=== PATIENT | female | born 1985 | race Caucasian/White ===

== ENCOUNTER 2017-03-20 12:08 | Day surgery (SDC) | payer OTHER ==
[~2017-03-20] VITALS: Ht 167.6 cm; Wt 73.0 kg
[~2017-03-20 12:08] MED LIST: DOXY200C PO; NS 1,000 ML IV ONE; OXYC15TA76 PO
[2017-03-20] MEDS ORDERED: IMIT50TA PO (13:36)
[2017-03-20] MEDS ORDERED: IMIT5SPR (13:36)
[2017-03-20] MEDS ORDERED: IMIT6INJ SC (13:36)
[2017-03-20] MEDS ORDERED: ZOFR4TAB3 PO (13:36)
[2017-03-20] MEDS ORDERED: PROPOFOL 200 MG/20 ML VIAL As Ordered ONE (14:12)
--- NOTE | 2017-03-20 14:17 | ROOR ---
Patient Name: Tiffany Osei Procedure Date: 03/20/2017 1:51 PM Date of : 1985 Age: 32 Room: LTAC, [facility]IN [facility] Gender: Female Note Status: Finalized Procedure: Total Colonoscopy to Cecum + ileoscopy + Bx Indications: Generalized abdominal pain, Change in bowel habits Providers: Romaine Yung MD Referring MD: MAXIME Ortiz Requesting Provider: Medicines: Monitored Anesthesia Care Complications: No immediate complications. Procedure: Pre-Anesthesia Assessment: - The heart rate, respiratory rate, oxygen saturations, blood pressure, adequacy of pulmonary ventilation, and response to care were monitored throughout the procedure. The Colonoscope was introduced through the anus and advanced to the terminal ileum, with identification of the appendiceal orifice and IC valve. The colonoscopy was performed without difficulty. The patient tolerated the procedure well. The quality of the bowel preparation was good. Findings: The perianal and digital rectal examinations were normal. Non-bleeding internal hemorrhoids were found during retroflexion. The hemorrhoids were small and Grade I (internal hemorrhoids that do not prolapse). The terminal ileum appeared normal. The exam was otherwise normal throughout the examined colon. Biopsies for histology were taken with a cold forceps from the ascending colon, transverse colon and descending colon for evaluation of microscopic colitis. The exam was otherwise without abnormality. Impression: - Non-bleeding internal hemorrhoids. - The examined portion of the ileum was normal. - The examination was otherwise normal. - Biopsies were taken with a cold forceps from the ascending colon, transverse colon and descending colon for evaluation of microscopic colitis. - The exam was otherwise normal to the cecum. Recommendation: - Patient has a contact number available for emergencies. The signs and symptoms of potential delayed complications were discussed with the patient. Return to normal activities tomorrow. Written discharge instructions were provided to the patient. - High fiber diet. - Discharge patient to home. - Continue present medications. - Await pathology results. - Telephone GI clinic for pathology results in 1 week. - Repeat colonoscopy at age 49 for screening purposes. - Return to referring physician. - Check Portal Online for Path Results.([email or web address] - The findings and recommendations were discussed with the patient's family. Romaine Yung MD Romaine Yung MD 03/20/2017 2:16:31 PM This report has been signed electronically. Number of Addenda: 0 Note Initiated On: 03/20/2017 1:51 PM Estimated Blood Loss: Estimated blood loss: none.
[2017-03-20] MEDS ORDERED: ONDANSETRON 4MG/2ML VIAL (J2405) As Ordered ONE (14:19)
[2017-03-20] MEDS ORDERED: ONDANSETRON 4MG/2ML VIAL (J2405) IV ONE (14:45)
[2017-03-20 14:53] VITALS: BP 115/74
== END 2017-03-20 14:50 | disposition home or self-care (01) ==
LOC: M OPP 12:08
PROVIDERS: ATTEND Internal Medicine Gastroenterology
DX: R10.84 Generalized abdominal pain (principal); R19.4 Change in bowel habit; K64.0 First degree hemorrhoids; D64.9 Anemia, unspecified; Z86.711 Personal history of pulmonary embolism; G43.909 Migraine, unspecified, not intractable, without status migrainosus; G47.8 Other sleep disorders; Z90.13 Acquired absence of bilateral breasts and nipples; Z88.5 Allergy status to narcotic agent; Z88.8 Allergy status to other drugs, medicaments and biological substances; Z79.899 Other long term (current) drug therapy; Z80.3 Family history of malignant neoplasm of breast; Z80.0 Family history of malignant neoplasm of digestive organs; Z80.1 Family history of malignant neoplasm of trachea, bronchus and lung
CPT/HCPCS: 45380; 88305; J2405

== ENCOUNTER 2017-05-30 11:50 | Emergency (ER) | payer OTHER ==
[2017-05-30] MEDS: PERCOCET 5MG/325MG TAB PO (14:26)
== END 2017-05-30 15:55 | disposition home or self-care (01) ==
LOC: M ED 11:50
DX: S80.02XA Contusion of left knee, initial encounter (principal); X50.9XXA Other and unspecified overexertion or strenuous movements or postures, initial encounter; Y92.009 Unspecified place in unspecified non-institutional (private) residence as the place of occurrence of the external cause; Z79.899 Other long term (current) drug therapy; Z88.0 Allergy status to penicillin; Z88.8 Allergy status to other drugs, medicaments and biological substances
CPT/HCPCS: 73564

== ENCOUNTER → 2018-12-10 | Outpatient (REF) | payer OTHER ==
[~2018-12-10] MED LIST changes: +IBUP-1022 PO; +IMIT50TA PO; +IMIT5SPR; +IMIT6INJ SC; -NS 1,000 ML IV ONE; +TRAM50TA2 PO; +ZOFR4TAB14 PO
[2018-12-14 14:28] LABS: HPV HYBRID CAPTURE II Negative (Negative)
== END ==
LOC: M LAB LCGH 11:48
PROVIDERS: ATTEND Nurse Practitioner Adult Health
DX: Z12.72 Encounter for screening for malignant neoplasm of vagina (principal); Z90.710 Acquired absence of both cervix and uterus

== ENCOUNTER → 2019-12-09 | Outpatient (CLI) | payer OTHER, SELFPAY ==
[~2019-12-09] MED LIST changes: +OXYC-1 PO; -OXYC15TA76 PO
== END ==
LOC: M LABSMTC 11:16
PROVIDERS: ATTEND Pediatrics
DX: Z03.818 Encounter for observation for suspected exposure to other biological agents ruled out (principal)

== ENCOUNTER → 2020-02-29 | Outpatient (CLI) | payer OTHER ==
[2020-02-29 12:26] LABS: BASO % 0.4 % (0.0-1.0); EOS # 0.1 10^3/uL (0.0-0.5); EOS % 1.7 % (0.0-3.0); HEMATOCRIT 41.4 % (36.0-47.0); HEMOGLOBIN 13.2 g/dl (12.0-15.5); LYMPH # 2.8 10^3/uL (1.5-5.0); LYMPH % 39.2 % (24.0-44.0); MEAN CORPUSCULAR HEMOGLOBIN 29.6 pg (27.0-33.0); MEAN CORPUSCULAR HGB CONC 31.9 g/dl (32.0-36.5); MEAN CORPUSCULAR VOLUME 92.8 fl (80.0-96.0); MONO # 0.4 10^3/uL (0.0-0.8); MONO % 5.7 % (0.0-5.0); NEUTROPHILS # 3.8 10^3/uL (1.5-8.5); NEUTROPHILS % 52.9 % (36.0-66.0); PLATELET COUNT, AUTOMATED 237 10^3/uL (150-450); RED BLOOD COUNT 4.46 10^6/uL (4.00-5.40); WHITE BLOOD COUNT 7.3 10^3/uL (4.0-10.0)
[2020-02-29 12:51] LABS: ALBUMIN 4.1 GM/DL (3.2-5.2); ALT/SGPT 40 U/L (12-78); BILIRUBIN,DIRECT < 0.1 MG/DL (0.0-0.2); BILIRUBIN,TOTAL 0.3 MG/DL (0.2-1.0); BLOOD UREA NITROGEN 9 MG/DL (7-18); CALCIUM LEVEL 8.7 MG/DL (8.5-10.1); CARBON DIOXIDE LEVEL 29 MEQ/L (21-32); CHLORIDE LEVEL 104 MEQ/L (98-107); CREATININE FOR GFR 0.69 MG/DL (0.55-1.30); GLOMERULAR FILTRATION RATE > 60.0 (>60); GLUCOSE, FASTING 72 MG/DL (70-100); POTASSIUM SERUM 3.8 MEQ/L (3.5-5.1); SODIUM LEVEL 139 MEQ/L (136-145); TOTAL PROTEIN 7.6 GM/DL (6.4-8.2)
== END ==
LOC: M LAB 11:50
PROVIDERS: ATTEND Physician Assistant
DX: K92.1 Melena (principal)

== ENCOUNTER → 2020-03-31 | Outpatient (CLI) | payer OTHER ==
--- NOTE | 2020-03-31 14:45 | REP ---
INDICATION: SPONDYLOSIS W/O MYELOPATHY OR RADICULOPATHY ? METS. Patient reports migraines for the last 2 months with right posterior skull pain. COMPARISON: Comparison is made with prior CT study of the brain from December 05, 2013.. TECHNIQUE/RADIOTRACER AND DOSE: 21.7 mCi of Technetium-99m MDP was injected and standard whole-body bone scanning is acquired. FINDINGS: There is a normal distribution of skeletal tracer with uptake in bilateral kidneys and in the urinary bladder. There is a solitary focus of slightly increased uptake in the right occipital bone posteriorly. No other abnormal skeletal uptake is appreciated. There is no scintigraphic evidence to suggest skeletal metastatic disease.. IMPRESSION: Solitary focus of slightly increased uptake in the right posterior occipital bone uncertain significance. No corresponding abnormality is seen on the [address] study. A repeat brain CT study could be considered to look for corresponding calvarial lesion. Otherwise negative whole body radionuclide bone scan.. <Electronically signed by Papi Chin > 03/31/20 [id number]
== END ==
LOC: M RAD 10:06
PROVIDERS: ATTEND Physician Assistant
DX: M47.812 Spondylosis without myelopathy or radiculopathy, cervical region (principal)
CPT/HCPCS: 78306; A9503

== ENCOUNTER → 2020-04-23 | Outpatient (CLI) | payer OTHER ==
[~2020-04-23] MED LIST changes: +DULO1CAP5 PO; +NORT25CA2 PO; +ROSU10TA6 PO; +VITA500C24 PO; +WOMETAB PO; +XARE20TA PO
--- NOTE | 2020-04-23 10:43 | REP ---
INDICATION: DVT COMPARISON: None. TECHNIQUE: AP, Water's view, Jana's view, and bilateral lateral views of the skull. FINDINGS: Calvarium appears intact and relatively age-appropriate. No obvious lytic or blastic lesions are identified. Specifically, right posterior occipital area demonstrates no abnormality at the site of suspicious bone scan findings. IMPRESSION: Essentially normal examination. <Electronically signed by Ace Bowie > 04/23/20 1032
== END ==
LOC: M RAD 10:05
PROVIDERS: ATTEND Internal Medicine Hematology & Oncology
DX: I82.409 Acute embolism and thrombosis of unspecified deep veins of unspecified lower extremity (principal); I26.99 Other pulmonary embolism without acute cor pulmonale

== ENCOUNTER → 2020-05-19 | Outpatient (CLI) | payer OTHER ==
[~2020-05-19] MED LIST changes: +CYCL7.5T32 PO
--- NOTE | 2020-05-25 12:32 | ECHO ---
DATE OF PROCEDURE: 05/19/2020 Age: 35 Gender: Female Height: 158 cm Weight: 83 kg REFERRING PHYSICIAN: Maurizio Miller PA-C INDICATION: Aneurysm of carotid artery. MEASUREMENTS: 2D Measurements: Intraventricular septum 0.99 cm Posterior wall 0.92 cm Left ventricle diastole 4.5 cm Aortic root 2.6 cm Left atrium 2.6 cm Left atrial volume index 18 cm Inferior vena cava 1.1 cm (more than 50% respiratory variation) Doppler Measurements: No aortic regurgitation Aortic valve velocity 106 cm/s LVOT velocity 98.5 cm/s No mitral regurgitation Mitral E velocity 70.6 cm/s Mitral A velocity 51.8 cm/s Mitral deceleration time 201 msec Trace tricuspid regurgitation Estimated right ventricular systolic pressure 27-32 mmHg No pulmonic regurgitation MITRAL ANNULAR TISSUE DOPPLER E prime septal 10.2 cm/s, E prime lateral 12.4 cm/s DESCRIPTION: Rhythm was sinus. Image quality was adequate. No pericardial effusion. This was a 2D, M-mode, color flow Doppler, and pulsed wave Doppler examination including mitral annular tissue Doppler. No pericardial effusion. CONCLUSIONS: 1. Normal echocardiogram Doppler. 2. Normal left ventricular internal dimensions and wall thickness. Normal regional LV wall motion and wall thickening. Normal LV systolic function. LVEF 65% by visual estimate. Normal LV diastolic function. MTDD
== END ==
LOC: M CARPUL 11:27
PROVIDERS: ATTEND Physician Assistant
DX: I72.0 Aneurysm of carotid artery (principal)

== ENCOUNTER → 2020-06-01 | Outpatient (CLI) | payer OTHER ==
[2020-06-01 18:38] LABS: BLOOD UREA NITROGEN 8 MG/DL (7-18); CALCIUM LEVEL 9.4 MG/DL (8.5-10.1); CARBON DIOXIDE LEVEL 26 MEQ/L (21-32); CHLORIDE LEVEL 102 MEQ/L (98-107); CPK CREATINE PHOSPHOKINASE 90 U/L (26-192); CREATININE FOR GFR 0.94 MG/DL (0.55-1.30); GLOMERULAR FILTRATION RATE > 60.0 (>60); GLUCOSE, FASTING 75 MG/DL (70-100); POTASSIUM SERUM 3.4 MEQ/L (3.5-5.1); SODIUM LEVEL 138 MEQ/L (136-145); TROPONIN I < 0.02 NG/ML (< 0.10)
[2020-06-01 18:43] LABS: BASO % 0.5 % (0.0-1.0); EOS # 0.1 10^3/uL (0.0-0.5); EOS % 1.8 % (0.0-3.0); HEMATOCRIT 46.2 % (36.0-47.0); HEMOGLOBIN 15.4 g/dl (12.0-15.5); LYMPH % 40.1 % (24.0-44.0); MEAN CORPUSCULAR HEMOGLOBIN 30.1 pg (27.0-33.0); MEAN CORPUSCULAR HGB CONC 33.3 g/dl (32.0-36.5); MEAN CORPUSCULAR VOLUME 90.2 fl (80.0-96.0); MONO # 0.5 10^3/uL (0.0-0.8); MONO % 6.1 % (0.0-8.0); NEUTROPHILS # 3.8 10^3/uL (1.5-8.5); NEUTROPHILS % 51.2 % (36.0-66.0); PLATELET COUNT, AUTOMATED 247 10^3/uL (150-450); RED BLOOD COUNT 5.12 10^6/uL (4.00-5.40); WHITE BLOOD COUNT 7.4 10^3/uL (4.0-10.0)
--- NOTE | 2020-06-01 18:48 | REP ---
INDICATION: ACUTE BRONCHITIS, UNSPECIFIED, LABS 1ST THEN XR COMPARISON: None. TECHNIQUE: PA and lateral. FINDINGS: The mediastinum and cardiac silhouette are normal. The lung acosta are clear and without acute consolidation, effusion, or pneumothorax. The skeletal structures are intact and normal. IMPRESSION: No acute cardiopulmonary process. <Electronically signed by Ace Bowie > 06/01/20 [id number]
== END ==
LOC: M LAB 17:11
PROVIDERS: ATTEND Physician Assistant
DX: J20.9 Acute bronchitis, unspecified (principal)

== ENCOUNTER → 2020-06-12 | Outpatient (CLI) | payer OTHER ==
--- NOTE | 2020-06-12 08:09 | REPVR ---
PROCEDURE INFORMATION: Exam: CT Head Without Contrast Exam date and time: 06/12/2020 7:47 AM Age: 35 years old Clinical indication: Other: Bone lesion TECHNIQUE: Imaging protocol: Computed tomography of the head without contrast. Radiation optimization: All CT scans at this facility use at least one of these dose optimization techniques: automated exposure control; mA and/or kV adjustment per patient size (includes targeted exams where dose is matched to clinical indication); or iterative reconstruction. COMPARISON: CT Head without contrast 12/05/2013 12:35 AM FINDINGS: Brain: Normal. No hemorrhage. Unremarkable white matter. No mass effect. Cerebral ventricles: No ventriculomegaly. Bones/joints: Unremarkable. No acute fracture. Paranasal sinuses: Visualized sinuses are unremarkable. No fluid levels. Mastoid air cells: Visualized mastoid air cells are well aerated. Soft tissues: Unremarkable. IMPRESSION: No acute intracranial abnormality. Electronically signed by: Wilber Fernandez On 06/12/2020 08:09:27 AM
== END ==
LOC: M RAD 07:39
PROVIDERS: ATTEND Psychiatry & Neurology Neurology
DX: M89.9 Disorder of bone, unspecified (principal)

== ENCOUNTER → 2020-06-18 | Outpatient (CLI) | payer OTHER | LOC: M LAB 17:13 | PROVIDERS: ATTEND Physician Assistant | DX: R05 Cough (principal) ==

== ENCOUNTER → 2020-07-07 | Outpatient (CLI) | payer OTHER ==
[~2020-07-07] MED LIST changes: +METHACHOLINE KIT (J7674) INH ONE
--- NOTE | 2020-07-07 10:24 | PFTRPT ---
Height: 67.00 Inches Weight: 197.00 Lbs BSA: 2.01 Diagnosis: K21.9 DATE: 07/07/2020 ORDERED BY: Fede Griffiths D.O. QUALITY: Study of excellent technical quality. PROCEDURE: Under protocol, methacholine was administered. At a dose of 2.5 mg or 13.875 CDUs, a 27% decline in the FEV1 was noted. PC of 0.57 is significant. Flow rates did return to baseline post bronchodilator administration. IMPRESSION: Positive methacholine challenge study. MTDD
== END ==
LOC: M CARPUL 09:36
PROVIDERS: ATTEND Internal Medicine Pulmonary Disease
DX: K21.9 Gastro-esophageal reflux disease without esophagitis (principal)
CPT/HCPCS: 94070; J7674

== ENCOUNTER → 2020-07-08 | Outpatient (CLI) | payer OTHER ==
[~2020-07-08] MED LIST changes: +ISOVUE-370 76% 100ML VIAL As Ordered ONE; -METHACHOLINE KIT (J7674) INH ONE
--- NOTE | 2020-07-08 08:22 | REP ---
INDICATION: DYSPNEA. COMPARISON: 07/18/2019. TECHNIQUE: CT of the chest with IV contrast, CT angiography. FINDINGS: There are no emboli in the pulmonary trunk or central pulmonary arteries. There are no emboli in the pulmonary artery lobar segment branches. There are no infiltrates or pleural effusions. There are no lung masses or nodules. There is no mediastinal, hilar are or axillary lymph node enlargement. There are bilateral breast implants, unchanged. The thoracic aorta is unremarkable. Cardiac size is normal. There is no pericardial effusion. The visualized upper abdominal contents are unremarkable. IMPRESSION: There are no pulmonary emboli. Otherwise, negative CT study of the chest. Bilateral breast implants are incidentally identified, unchanged. <Electronically signed by Mayank Celestin > 07/08/20 0846
== END ==
LOC: M RAD 07:38
PROVIDERS: ATTEND Physician Assistant
DX: R06.00 Dyspnea, unspecified (principal); Z98.82 Breast implant status
CPT/HCPCS: 71275; Q9967

== ENCOUNTER 2020-08-20 10:06 | Emergency (ER) | payer OTHER ==
[~2020-08-20] VITALS: Ht 170.2 cm; Wt 91.8 kg
[~2020-08-20 10:06] MED LIST changes: -ISOVUE-370 76% 100ML VIAL As Ordered ONE
[2020-08-20] MEDS ORDERED: METH-1165 (10:17)
[2020-08-20] MEDS ORDERED: OMEP-218 (10:17)
[2020-08-20] MEDS ORDERED: NS 1,000 ML IV ONE (12:45)
--- NOTE | 2020-08-20 13:06 | REP ---
INDICATION: headache, h/o aneurysm. COMPARISON: Comparison prior CT studies are dated 12 June 2020 and 05 December 2013. Comparison skull radiographs April 23, 2020.. Comparison bone scan is reviewed 31 March 2020. TECHNIQUE: Helical scanning is acquired. 5 mm axial images were reformatted. Coronal MPR images were generated. FINDINGS: Preliminary digital fast food cashier radiograph is unremarkable. 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 In any event, this is unchanged. No acute bony lesion is seen. Visualized paranasal sinuses are clear. On soft tissue window settings, the lateral, 3rd, and 4th ventricles are normal in size and position. Moreno-white differentiation pattern is normal above and below the tentorium. There is no evidence of intracranial hemorrhage. No infarct, mass, extra-axial fluid collection, or midline shift is seen. 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 No acute intracranial abnormality.. <Electronically signed by Papi Chin > 08/20/20 [id number]
[2020-08-20] MEDS ORDERED: ONDANSETRON 4MG/2ML VIAL IV ONE (13:20)
[2020-08-20] MEDS ORDERED: MORPHINE 4 MG/ML 1ML VIAL/SYRINGE (J2270) IV ONE (13:20)
[2020-08-20 13:42] LABS: BASO % 0.5 % (0.0-1.0); EOS # 0.1 10^3/uL (0.0-0.5); EOS % 2.2 % (0.0-3.0); HEMATOCRIT 43.8 % (36.0-47.0); HEMOGLOBIN 14.5 g/dl (12.0-15.5); LYMPH % 32.9 % (24.0-44.0); MEAN CORPUSCULAR HEMOGLOBIN 30.2 pg (27.0-33.0); MEAN CORPUSCULAR HGB CONC 33.1 g/dl (32.0-36.5); MEAN CORPUSCULAR VOLUME 91.3 fl (80.0-96.0); MONO # 0.3 10^3/uL (0.0-0.8); MONO % 5.7 % (2.0-8.0); NEUTROPHILS # 3.5 10^3/uL (1.5-8.5); NEUTROPHILS % 58.5 % (36.0-66.0); PLATELET COUNT, AUTOMATED 202 10^3/uL (150-450)
[2020-08-20 13:53] LABS: INR 1.29; PARTIAL THROMBOPLASTIN TIME 31.4 SECONDS (24.2-38.5); PROTHROMBIN TIME 16.4 SECONDS (12.5-14.3)
[2020-08-20 14:07] LABS: BLOOD UREA NITROGEN 13 MG/DL (7-18); CALCIUM LEVEL 9.4 MG/DL (8.5-10.1); CARBON DIOXIDE LEVEL 29 MEQ/L (21-32); CHLORIDE LEVEL 104 MEQ/L (98-107); CK-MB VALUE MASS < 1.0 NG/ML (<3.6); CPK CREATINE PHOSPHOKINASE 74 U/L (26-192); CREATININE FOR GFR 0.75 MG/DL (0.55-1.30); GLOMERULAR FILTRATION RATE > 60.0 (>60); GLUCOSE, FASTING 96 MG/DL (70-100); MB/CK RELATIVE INDEX 1.35 (< OR =4); POTASSIUM SERUM 3.9 MEQ/L (3.5-5.1); SODIUM LEVEL 138 MEQ/L (136-145); TROPONIN I < 0.02 NG/ML (< 0.10)
[2020-08-20] MEDS ORDERED: diphenhydrAMINE 50MG/ML VIAL (J1200) IV ONE (14:20)
[2020-08-20] MEDS ORDERED: ACETAMINOPHEN 500 MG TAB PO ONE (14:20)
[2020-08-20 14:21] LABS: ERYTHROCYTE SEDIMENTATION RATE 14 mm/hr (0-20)
--- NOTE | 2020-08-20 16:04 | REP ---
INDICATION: migraine, h/o carotid aneurysm and TIAs. COMPARISON: Comparison brain MRI study is from 05 December 2013. Comparison is made with the current CT study of the brain.. TECHNIQUE: Axial and sagittal imaging planes are utilized for T1 and T2-weighted scans. Sequences include spin-echo, fast spin echo, FLAIR, and diffusion weighted sequences. FINDINGS: No bony calvarial lesion is seen. Craniocervical junction and upper cervical cord are normal in appearance. There is no MR evidence of significant paranasal sinus disease. No intraorbital abnormality is seen. The lateral, third, and fourth ventricles are normal in size and position. Moreno-white differentiation pattern is intact above and below the tentorium. There is no evidence of intracranial hemorrhage. No mass, infarction, extra-axial fluid collection or midline shift is seen. No abnormal white matter lesion is seen. There is a mucous retention cyst visible in the floor of the left maxillary sinus. IMPRESSION: Negative noncontrast brain MRI study. <Electronically signed by Papi Chin > 08/20/20 1600
--- NOTE | 2020-08-20 16:06 | REP ---
INDICATION: migraine, h/o carotid aneurysm and TIAs. COMPARISON: None. TECHNIQUE: 3-D [id number] MR angiography of the brain is acquired in the usual fashion and maximal intensity projection images were generated in rotational format about the vertical and horizontal axes. In addition, source axial T1-weighted images are viewed in cine mode. FINDINGS: The distal vertebral arteries are patent and co-dominant. Basilar artery is a little tortuous but widely patent. The posterior cerebral and superior cerebellar vessels are normal and symmetric. The distal internal carotid arteries are unremarkable. Anterior and middle cerebral arteries appear intact. There is no visible de la cruz aneurysm or arteriovenous malformation. IMPRESSION: Unremarkable MR angiography the brain. <Electronically signed by Papi Chin > 08/20/20 [id number]
--- NOTE | 2020-08-20 16:08 | REP ---
INDICATION: h/o carotid aneurysm. COMPARISON: None. TECHNIQUE: 2D and 3D noncontrast MR angiography of the neck is acquired. Maximum density projection images are generated and viewed rotationally. FINDINGS: The great vessel origins are unremarkable bilaterally. Vertebral arteries are codominant and widely patent. The basilar artery is unremarkable. The common carotid arteries are widely patent. Carotid bifurcations are clear bilaterally. The no significant plaquing or narrowing is seen. The internal carotid artery segments are normal and symmetric. IMPRESSION: Normal cervical carotid MR angiography without contrast. <Electronically signed by Papi Chin > 08/20/20 [id number]
[2020-08-20 16:43] VITALS: BP 128/77
[2020-08-20] MEDS ORDERED: MAG SULF 1GM/100ML (MAG RUN) 1 GM in IV 1 EA IV ONE (16:45)
[2020-08-20] MEDS ORDERED: dexameTHASONE 4 MG/ML 1ML VIAL (J1100 PER 1MG) IV ONE (16:45)
--- NOTE | 2020-08-20 17:21 | ECGEPIP ---
[facility] - ED Test Date: 2020-08-20 Pat Name: TRACY DIAZ Department: Room: - Gender: Female Dog Beautician: AMBAR : 1985 Requested By: DIANA Ayoub PA-C Order Number: [id number] Reading MD: Gino Bustos Measurements Intervals [place] Rate: 61 P: 41 NH: 146 QRS: 8 QRSD: 84 T: 21 QT: 438 QTc: 440 Interpretive Statements Normal sinus rhythm Comparison tracing not on file Electronically Signed on 08-20-2020 17:21:09 EDT by Gino Bustos
--- NOTE | 2020-08-23 08:40 | ED PDOC ---
Post-Departure Follow-Up radiology report faxed to cholo Carlin Sarah MD August 23, 2020 08:40
== END 2020-08-20 18:39 | disposition home or self-care (01) ==
LOC: M ED 10:06
DX: G43.119 Migraine with aura, intractable, without status migrainosus (principal); Z85.3 Personal history of malignant neoplasm of breast; Z90.13 Acquired absence of bilateral breasts and nipples; Z98.82 Breast implant status; Z86.711 Personal history of pulmonary embolism; Z88.0 Allergy status to penicillin; Z88.8 Allergy status to other drugs, medicaments and biological substances; Z79.899 Other long term (current) drug therapy; Z79.01 Long term (current) use of anticoagulants
CPT/HCPCS: 36415; 70450; 70544; 70547; 70551; 80048; 82550; 82553; 84484; 85025; 85610; 85652; 85730; 86140; 93005; 93041; 96361; 96365; 96375; 99284; J1100; J1200; J2270; J2405; J3475

== ENCOUNTER → 2020-11-13 | Outpatient (CLI) | payer OTHER ==
[~2020-11-13] MED LIST changes: +METH-1165; +OMEP-218
[2020-11-13 11:30] LABS: BLOOD UREA NITROGEN 11 MG/DL (7-18); CREATININE FOR GFR 0.73 MG/DL (0.55-1.30); GLOMERULAR FILTRATION RATE > 60.0 (>60)
== END ==
LOC: M LAB 10:11
PROVIDERS: ATTEND Surgery Vascular Surgery
DX: M79.605 Pain in left leg (principal)

== ENCOUNTER → 2020-12-14 | Outpatient (CLI) | payer OTHER ==
[~2020-12-14] MED LIST changes: -METH-1165; +METH-1165 PO; -OMEP-218; +OMEP-218 PO; +SEMA0.5P SC
== END ==
LOC: M LABSMTC 11:58
PROVIDERS: ATTEND Surgery Vascular Surgery
DX: Z20.822 Contact with and (suspected) exposure to COVID-19 (principal)

== ENCOUNTER → 2020-12-17 | Outpatient (CLI) | payer OTHER | LOC: M LABSMTC 11:15 | PROVIDERS: ATTEND Anesthesiology | DX: Z01.812 Encounter for preprocedural laboratory examination (principal); Z20.822 Contact with and (suspected) exposure to COVID-19 ==

== ENCOUNTER 2020-12-22 06:16 | Day surgery (SDC) | payer OTHER ==
[~2020-12-22] VITALS: Ht 167.6 cm; Wt 90.7 kg
[~2020-12-22 06:16] MED LIST changes: +HEPARIN SOD (PORCINE) 5000UNITS/ML 1ML VIAL/SYRINGE SQ SCH; +LR 1,000 ML IV SCH
[2020-12-22] MEDS ORDERED: LIDOCAINE 1% MDV 20ML VIAL As Ordered ONE (07:16)
[2020-12-22] MEDS ORDERED: BUPIVACAINE LIPOSOME/PF 1.3% 20ML VIAL (13.3MG/ML)(EXPAREL)(C9290 PER1MG) As Ordered ONE (07:16)
[2020-12-22] MEDS ORDERED: EPINEPHrine INJ 1 MG/ML 1ML AMP As Ordered ONE (07:16)
[2020-12-22] MEDS ORDERED: GENTAMICIN SULF 80MG/2ML VIAL As Ordered ONE (07:16)
[2020-12-22] MEDS ORDERED: ROCURONIUM BROMIDE 50 MG/5 ML VIAL As Ordered ONE (07:19)
[2020-12-22] MEDS ORDERED: ONDANSETRON 4MG/2ML VIAL As Ordered ONE (07:19)
[2020-12-22] MEDS ORDERED: dexameTHASONE 4 MG/ML 1ML VIAL (J1100 PER 1MG) As Ordered ONE (07:19)
[2020-12-22] MEDS ORDERED: fentaNYL 250 MCG/5 ML INJECTION (J3010) As Ordered ONE (07:19)
[2020-12-22] MEDS ORDERED: LIDOCAINE 2% 100MG/5ML SDV (FOR ANES.) As Ordered ONE (07:19)
[2020-12-22] MEDS ORDERED: propofoL 200 MG/20 ML VIAL As Ordered ONE (07:19)
[2020-12-22] MEDS ORDERED: MIDAZOLAM INJ 2MG/2ML VIAL (J2250 PER 1MG) As Ordered ONE (07:22)
[2020-12-22] MEDS ORDERED: CIPROFLOXACIN/D5W 400 MG/200 ML BAG (J0744) As Ordered ONE (07:23)
[2020-12-22] MEDS ORDERED: SCOPOLAMINE 1MG TRANSDERMAL PATCH TOP ONE ×2 (07:35→11:00)
[2020-12-22] MEDS ORDERED: CIPROFLOXACIN 400 MG in IV 1 EA IV ONE (07:40)
[2020-12-22] MEDS ORDERED: LACRILUBE (AKWA TEARS) OPHTH OINT 3.5 GM As Ordered ONE (08:01)
[2020-12-22] MEDS ORDERED: PHENYLephrine 500MCG 5ML (100MCG/ML) SYRINGE As Ordered ONE (08:36)
[2020-12-22] MEDS ORDERED: ACETAMINOPHEN 1000MG 100ML IV BTL (OFIRMEV) (J0131 PER 10MG) As Ordered ONE (08:40)
[2020-12-22] MEDS ORDERED: HYDROmorphone HCL 2 MG/ML 1ML VIAL (J1170) As Ordered ONE (08:40)
[2020-12-22] MEDS ORDERED: SUGAMMADEX SODIUM 500 MG/5 ML VIAL (BRIDION) As Ordered ONE (08:40)
[2020-12-22] MEDS ORDERED: ePHEDrine SULFATE 25 MG/5 ML(5MG/ML) SYRINGE As Ordered ONE (08:44)
--- NOTE | 2020-12-22 10:34 | POST-OPPD ---
Postoperative Procedure Note Date Of Procedure: Dec 22, 2020 PREOPERATIVE DIAGNOSIS: Bilateral reconstructed breasts s/p mastectomy. Breast pain. chest wall asymmetry. POSTOPERATIVE DIAGNOSIS: same PROCEDURE: Revision bilateral breast reconstruction with exchange of implants and lateral chest wall contouring. SURGEON: Dr Godinez PILOT CONTROL OPERATOR: none ANESTHESIA: general ESTIMATED BLOOD LOSS: 10 cc FINDINGS: Explanted Allergan textured shaped implants 625 cc, both intact. SPECIMENS: right and left Allergan implants COMPLICATIONS: none REPLACED: none DRAINS: none POSTOPERATIVE CONDITION: stable WM GODINEZ DO Dec 22, 2020 10:34
--- NOTE | 2020-12-22 10:37 | ROOPDOC ---
[facility] Report Of Operation Report of Operation DATE OF PROCEDURE: 12/22/20 PREOPERATIVE DIAGNOSIS: Bilateral reconstructed breasts s/p mastectomy. Breast pain. chest wall asymmetry. POSTOPERATIVE DIAGNOSIS: same PROCEDURE: Revision bilateral breast reconstruction with exchange of implants and lateral chest wall contouring. SURGEON: Dr Godinez COMMUNITY SUPPORT SPECIALIST: none ANESTHESIA: general ESTIMATED BLOOD LOSS: 10 cc FINDINGS: Explanted Allergan textured shaped implants 625 cc, both intact. SPECIMENS: right and left Allergan implants. IMPLANTS: Mohler memory gel Xtra smooth moderate high profile 775 cc bilateral REF: [id number], SN [id number] right, SN [id number] left COMPLICATIONS: none REPLACED: none DRAINS: none POSTOPERATIVE CONDITION: stable DESCRIPTION OF PROCEDURE: Procedure: This is a 35-year-old female status post bilateral mastectomies with bilateral reconstruction roast master to permanent implants. Procedure was done on a different institution. Patient presents for request exchange of her Allergan 625 cc textured shaped implants to a round and smooth. Patient also has a symmetry on her lateral chest wall with excess tissue which she would like to revise to be more symmetrical. She is planned to have bilateral breast reconstruction revision with exchange of implants and lateral chest wall contouring via suction assisted lipectomy. Risk, benefits and alternatives of the procedure discussed with the patient in detail and she is ready to proceed. The day of surgery. Informed consent was confirmed and then patient was brought into the operating room, placed in supine position. General anesthesia was induced. She was given preoperative antibiotics, heparin 5000 subcutaneous and sequential stocking on the right lower leg was placed. She prepped and draped in the usual sterile fashion. We started our procedure on the right side. Inframammary incision was carried out 5 cm in length. Sharp dissection with electrocautery carried out until the pectoralis muscle fibers and encountered. Submuscular pocket was entered and implant was identified. It was removed without any difficulties. It is Allergan 625 cc textured shaped implant which is completely intact. Pocket was evaluated under direct vision with lighted retractor and open capsulotomy performed using electrocautery. Hemostasis was obtained using electrocautery as well. 700 cc sizer was introduced into the pocket and appears to be slightly smaller than intended. It seems that a large implant would be beneficial. There fore, we opted for the second proposed size 775 mL extra fill Mohler moderate plus profile implant. Implant was introduced at the table in sterile conditions. Local block with Exparel was given, totaling 6 cc. Then implant was introduced into the pocket using non-touch technique with Kennel funnel. It was good fit. The pocket was closed in layers with interrupted 3-0 Vicryl and 3-0 Monocryl sutures. Also, 4-0 Vicryl Monocryl sutures running subdermal suture. Then we turn our attention to the left side. Inframammary incision was carried out 5 cm in length. Sharp dissection with electrocautery carried out until the pectoralis muscle fibers and encountered. Submuscular pocket was entered and implant was identified. It was removed without any difficulties. It is Allergan 625 cc textured shaped implant which is completely intact. Pocket was evaluated under direct vision with lighted retractor and open capsulotomy performed using electrocautery. Hemostasis was obtained using electrocautery as well. 775 mL extra fill Mohler moderate plus profile implant was chosen. Implant was introduced at the table in sterile conditions. Local block with Exparel was given, totaling 6 cc. Then implant was introduced into the pocket using non-touch technique with Kennel funnel. It was good fit. The pocket was closed in layers with interrupted 3-0 Vicryl and 3-0 Monocryl sutures. Also, 4-0 Vicryl Monocryl sutures running subdermal suture. Small stab incision carried out on left inferior lateral chest on the left side and 200 cc of tumescent solution infiltrated throughout the lateral chest. Vaser liposuction was done for 2 minutes in the area followed by conventional liposuction technique evacuating 200 cc of fatty infiltrate. Small stab incision carried out on right inferior lateral chest on the left side and 200 cc of tumescent solution infiltrated throughout the lateral chest. Vaser liposuction was done for 2 minutes in the area followed by conventional liposuction technique evacuating 200 cc of fatty infiltrate. Good symmetry achieved between the breasts. Stab incisions closed with interrupted 4 Monocryl sutures. Steri-Strips dressing applied to the inframammary and stab wound incisions followed by a foam tape to superior breast and Epifoam to lateral chest wall and a surgical bra. Patient extubated without any difficulties and transferred to recovery room in stable condition. WM GODINEZ DO Dec 22, 2020 10:37
[2020-12-22] MEDS ORDERED: HYDROMORPHONE HCL 0.5 MG/ 0.5 ML SYRINGE (J1170 PER 1) IV PRN (10:45)
[2020-12-22] MEDS ORDERED: oxyCODONE 5MG TAB PO PRN (10:45)
[2020-12-22] MEDS ORDERED: ONDANSETRON 4MG/2ML VIAL IV PRN (10:45)
[2020-12-22] MEDS ORDERED: TRAM50TA2 PO (10:45)
[2020-12-22] MEDS ORDERED: fentaNYL 100 MCG/2 ML INJECTION (J3010) IV PRN (10:45)
[2020-12-22] MEDS ORDERED: LR 1,000 ML IV SCH (10:45)
[2020-12-22] MEDS ORDERED: METOCLOPRAMIDE INJ 10MG/2ML VIAL (J2765 PER 1) IV PRN (10:45)
[2020-12-22 12:59] VITALS: BP 143/82
== END 2020-12-22 13:02 | disposition home or self-care (01) ==
LOC: M SDC 06:16
PROVIDERS: ATTEND Plastic Surgery Surgery of the Hand
DX: N65.1 Disproportion of reconstructed breast (principal); N64.4 Mastodynia; M95.4 Acquired deformity of chest and rib; Z90.13 Acquired absence of bilateral breasts and nipples; Z98.82 Breast implant status; Z85.3 Personal history of malignant neoplasm of breast; K21.9 Gastro-esophageal reflux disease without esophagitis; Z86.73 Personal history of transient ischemic attack (TIA), and cerebral infarction without residual deficits; J45.909 Unspecified asthma, uncomplicated; Z86.711 Personal history of pulmonary embolism; Z79.899 Other long term (current) drug therapy; Z79.51 Long term (current) use of inhaled steroids; Z79.01 Long term (current) use of anticoagulants; Z88.0 Allergy status to penicillin; Z88.5 Allergy status to narcotic agent; Z91.048 Other nonmedicinal substance allergy status
CPT/HCPCS: 19380; 88300; C9290; J0131; J0171; J0744; J1100; J1170; J1580; J1644; J2250; J2370; J2405; J3010; L8600

== ENCOUNTER → 2021-01-09 | Outpatient (CLI) | payer OTHER ==
[~2021-01-09] MED LIST changes: -HEPARIN SOD (PORCINE) 5000UNITS/ML 1ML VIAL/SYRINGE SQ SCH; -LR 1,000 ML IV SCH
== END ==
LOC: M LABSMTC 09:44
PROVIDERS: ATTEND Student in an Organized Health Care Education/Training Program
DX: Z11.52 Encounter for screening for COVID-19 (principal)

== ENCOUNTER → 2021-05-20 | Outpatient (CLI) | payer OTHER ==
[~2021-05-20] MED LIST changes: +OMEP-173 PO; -OMEP-218 PO
== END ==
LOC: M RAD 12:28
PROVIDERS: ATTEND Nurse Practitioner Adult Health
DX: Z86.718 Personal history of other venous thrombosis and embolism (principal)

== ENCOUNTER → 2021-06-23 | Outpatient (CLI) | payer OTHER, SELFPAY | LOC: M RAD 10:05 | PROVIDERS: ATTEND Physician Assistant | DX: I67.1 Cerebral aneurysm, nonruptured (principal) ==

== ENCOUNTER → 2021-06-23 | Outpatient (CLI) | payer OTHER | LOC: M LABSMTC 09:44 | PROVIDERS: ATTEND Otolaryngology Facial Plastic Surgery | DX: Z11.52 Encounter for screening for COVID-19 (principal) ==

== ENCOUNTER → 2021-08-30 | Outpatient (CLI) | payer OTHER | LOC: M RAD 10:04 | PROVIDERS: ATTEND Family Medicine | DX: J45.20 Mild intermittent asthma, uncomplicated (principal) ==

== ENCOUNTER → 2021-09-16 | Outpatient (CLI) | payer OTHER ==
[2021-09-16 11:06] LABS: BASO # 0.1 10^3/uL (0.0-0.2); BASO % 0.4 % (0.0-1.0); EOS # 0.1 10^3/uL (0.0-0.5); EOS % 0.4 % (0.0-3.0); HEMATOCRIT 45.2 % (36.0-47.0); HEMOGLOBIN 14.7 g/dl (12.0-15.5); LYMPH # 3.6 10^3/uL (1.5-5.0); LYMPH % 25.2 % (24.0-44.0); MEAN CORPUSCULAR HEMOGLOBIN 29.8 pg (27.0-33.0); MEAN CORPUSCULAR HGB CONC 32.5 g/dl (32.0-36.5); MEAN CORPUSCULAR VOLUME 91.7 fl (80.0-96.0); MONO # 0.5 10^3/uL (0.0-0.8); MONO % 3.6 % (2.0-8.0); NEUTROPHILS # 9.8 10^3/uL (1.5-8.5); NEUTROPHILS % 69.3 % (36.0-66.0); PLATELET COUNT, AUTOMATED 267 10^3/uL (150-450); RED BLOOD COUNT 4.93 10^6/uL (4.00-5.40); WHITE BLOOD COUNT 14.1 10^3/uL (4.0-10.0)
[2021-09-16 11:38] LABS: ALT/SGPT 25 U/L (12-78); BILIRUBIN,TOTAL 0.4 MG/DL (0.2-1.0); BLOOD UREA NITROGEN 11 MG/DL (7-18); CALCIUM LEVEL 8.8 MG/DL (8.5-10.1); CARBON DIOXIDE LEVEL 25 MEQ/L (21-32); CHLORIDE LEVEL 105 MEQ/L (98-107); CREATININE FOR GFR 0.89 MG/DL (0.55-1.30); GLOMERULAR FILTRATION RATE > 60.0 (>60); GLUCOSE, FASTING 78 MG/DL (70-100); POTASSIUM SERUM 3.8 MEQ/L (3.5-5.1); SODIUM LEVEL 137 MEQ/L (136-145); TOTAL PROTEIN 7.8 GM/DL (6.4-8.2)
== END ==
LOC: M RAD 09:21
PROVIDERS: ATTEND Nurse Practitioner Adult Health
DX: J02.9 Acute pharyngitis, unspecified (principal)

== ENCOUNTER → 2021-10-12 | Outpatient (CLI) | payer OTHER ==
[2021-10-12 14:55] LABS: BASO % 0.5 % (0.0-1.0); EOS # 0.1 10^3/uL (0.0-0.5); HEMOGLOBIN 13.8 g/dl (12.0-15.5); LYMPH # 2.3 10^3/uL (1.5-5.0); LYMPH % 35.6 % (24.0-44.0); MEAN CORPUSCULAR HEMOGLOBIN 30.6 pg (27.0-33.0); MEAN CORPUSCULAR HGB CONC 33.7 g/dl (32.0-36.5); MEAN CORPUSCULAR VOLUME 90.9 fl (80.0-96.0); MONO # 0.3 10^3/uL (0.0-0.8); MONO % 5.4 % (2.0-8.0); NEUTROPHILS # 3.6 10^3/uL (1.5-8.5); NEUTROPHILS % 56.3 % (36.0-66.0); PLATELET COUNT, AUTOMATED 251 10^3/uL (150-450); RED BLOOD COUNT 4.51 10^6/uL (4.00-5.40); WHITE BLOOD COUNT 6.4 10^3/uL (4.0-10.0)
[2021-10-12 15:30] LABS: ALBUMIN 3.9 GM/DL (3.2-5.2); ALT/SGPT 19 U/L (12-78); BILIRUBIN,TOTAL 0.6 MG/DL (0.2-1.0); BLOOD UREA NITROGEN 11 MG/DL (7-18); CALCIUM LEVEL 9.2 MG/DL (8.5-10.1); CARBON DIOXIDE LEVEL 25 MEQ/L (21-32); CHLORIDE LEVEL 107 MEQ/L (98-107); CHOLESTEROL LEVEL 229 MG/DL (<200); CHOLESTEROL RISK RATIO 3.225 (<5); CREATININE FOR GFR 0.92 MG/DL (0.55-1.30); FREE T4 0.77 NG/DL (0.76-1.46); GLOMERULAR FILTRATION RATE > 60.0 (>60); GLUCOSE, FASTING 119 MG/DL (70-100); HDL CHOLESTEROL 71 MG/DL (>40); LDL CHOLESTEROL 136 MG/DL (<100); NON-HDL-C 158 MG/DL; POTASSIUM SERUM 3.6 MEQ/L (3.5-5.1); SODIUM LEVEL 140 MEQ/L (136-145); TOTAL PROTEIN 7.1 GM/DL (6.4-8.2); TRIGLYCERIDES LEVEL 108 MG/DL (<150)
[2021-10-12 15:41] LABS: FOLATE 7.5 NG/ML; TOTAL 25(OH) VITAMIN D 43.8 NG/ML (30.0-100.0); VITAMIN B12 LEVEL 344 PG/ML
== END ==
LOC: M LAB 12:23
PROVIDERS: ATTEND Physician Assistant
DX: E78.5 Hyperlipidemia, unspecified (principal)

== ENCOUNTER → 2021-10-21 | Outpatient (CLI) | payer OTHER | LOC: M RAD 16:46 | PROVIDERS: ATTEND Internal Medicine Pulmonary Disease | DX: R91.8 Other nonspecific abnormal finding of lung field (principal) ==